=== PATIENT | female | born 1970 | race Caucasian/White ===

== ENCOUNTER 2018-01-02 12:06 | Inpatient (IN) ==
[2018-01-02] MEDS ORDERED: 0.9 % Sodium Chloride 250 ML ONE ×3 (16:08→22:54)
[2018-01-02] MEDS ORDERED: Naloxone 0.4 MG/ML INJ IVP PRN (16:09)
--- NOTE | 2018-01-02 16:52 | Internal Med History&Physical ---
Date of Encounter: 01/02/18 Time of Encounter: 16:30 Assessment and Plan (1) Anemia Current visit: Yes Status: Acute Acute severe anemia with hemoglobin of 4.4. Due to severe metromenorrhagia while on Xarelto. Will transfuse packed red blood cells. Monitor vital signs. High risk for complications. Hold anticoagulation for now. Qualifiers: Anemia type: other cause Other causes of anemia: acute posthemorrhagic Qualified Code(s): D62 - Acute posthemorrhagic anemia (2) Deep vein thrombosis (DVT) Current visit: Yes Status: Acute Patient with acute occlusive thrombus in the right popliteal, gastrocnemius and lesser saphenous veins. Was being treated with anticoagulation with Xarelto but now having severe bleeding and anemia. We will hold" for now. Consult hematology for recommendations regarding anticoagulation versus placement of IVC filter. Qualifiers: DVT location: lower extremity Affected thrombotic vein of extremity: popliteal Chronicity: acute Laterality: right Qualified Code(s): I82.431 - Acute embolism and thrombosis of right popliteal vein (3) Severe anemia Current visit: Yes Status: Acute (4) COPD (chronic obstructive pulmonary disease) Current visit: Yes Status: Chronic Not in acute exacerbation. Continue inhalers and use nebulized bronchodilators as needed Qualifiers: COPD type: chronic bronchitis Chronic bronchitis type: simple Qualified Code(s): J41.0 - Simple chronic bronchitis (5) Essential hypertension Current visit: Yes Status: Chronic Monitor blood pressure. Continue antihypertensives. (6) Diabetes mellitus Current visit: Yes Status: Chronic Blood sugars elevated in the ER at 212. Will place patient on sliding scale insulin coverage. Diabetic diet. Qualifiers: Diabetes mellitus type: type 2 Diabetes mellitus complication status: with hyperglycemia Diabetes mellitus bed bug exterminator insulin use: without bed bug exterminator use Qualified Code(s): E11.65 - Type 2 diabetes mellitus with hyperglycemia (7) Metrorrhagia Current visit: Yes Status: Acute Due to anticoagulation with Xarelto. This appears to be improving now with anticoagulation has been held. If it persists, will consult gynecology for further recommendations. (8) Morbid obesity with BMI of 70 and over, adult Current visit: Yes Status: Chronic Internal Medicine - H&P: HPI Chief complaint: Chest pain and shortness of breath and palpitations Admitted From: Emergency Dept Plans for Post Hospital Care: Home History of present illness: Ms. Mosher is a 47 year old female patient with history of morbid obesity, recently diagnosed right-sided deep vein thrombosis, diabetes mellitus type 2, hypertension presented to the ER at [facility] with complaints of chest pain, shortness of breath and palpitations. Symptoms have been going on since yesterday. She had recently been diagnosed with deep vein thrombosis in her right lower extremity and was placed on anticoagulation with Xarelto 2 weeks back. Her menstrual period Had started the next day and since then she has had persistent menstrual bleeding for the past 2 weeks. She normally has periods that last for about 3 days. She denies any hematuria, hematemesis hematochezia or hematemesis. She has never had similar symptoms in the past. She reports that she had a sprained ankle one month back and it is believed that her venous thrombosis began around that time. Past Med Surg Social Fam HX - Past Medical History Attestation: Yes The following information was validated with the patient. Source: patient Medical history: COPD, DVT, diabetes, hypertension, other (Morbid obesity) Psychiatric history: no psych history - Past Surgical History Surgical History: breast surgery, , cholecystectomy - Social History Smoking Status: Former smoker Smokeless Tobacco Status: No Alcohol use: none Drug use: none - Additional Family History Additional family history: No family history of clotting disorders Internal Medicine - H&P: Meds Cetirizine HCl [Zyrtec] 10 mg PO DAILY 11/08/17 [History] metFORMIN [Glucophage] 1,000 mg PO BID 11/08/17 [History] Rivaroxaban [Xarelto] 15 mg PO BID #42 tablet 12/16/17 [Rx] ALPRAZolam [Xanax 1 MG Tablet] 1 mg PO BID PRN 01/02/18 [History] Albuterol Sulfate [Ventolin Hfa] 2 puff IH Q4H PRN 01/02/18 [History] Amlodipine Besylate 10 mg PO DAILY 01/02/18 [History] Ammonium Lactate [Lac-Hydrin Five] 1 appl TP BID 01/02/18 [History] Cholecalciferol (D-3) [Vitamin D] 1,000 unit PO DAILY 01/02/18 [History] Diclofenac Sodium [Voltaren] 50 mg PO BID PRN 01/02/18 [History] Furosemide [Lasix] 40 mg PO BID 01/02/18 [History] Lisinopril/Hydrochlorothiazide [Zestoretic 20-25 mg Tablet] 1 each PO DAILY 05/14 [History] Tiotropium [Spiriva] 18 mcg IH 0700 01/02/18 [History] 3 Allergy/AdvReac Type Severity Reaction Status Date / Time ibuprofen AdvReac Gastrointestinal Verified 12/18/17 13:47 Upset tramadol AdvReac Shakiness Verified 12/18/17 13:47 All Systems PM: A 10-system review of systems was performed and is negative for pertinent findings except as documented above in the HPI. - Constitutional Constitutional: fatigue, malaise, no chills, no fever(s), no night sweats - EENT Eyes: no change in vision, no discharge, no pain, no photophobia Ears: no ear discharge, no ear pain, no tinnitus Nose, mouth and throat: no dysphagia, no nasal discharge, no neck pain, no sore throat - Cardiovascular Cardiovascular ROS IM: chest pain, dyspnea, no diaphoresis, no lightheadedness, no palpitations, no syncope - Respiratory Respiratory: no cough, no dyspnea, no wheezing, no excessive phlegm production - Gastrointestinal Gastrointestinal: no abdominal pain, no diarrhea, no hematemesis, no hematochezia, no melena, no nausea, no vomiting - Genitourinary Genitourinary: menorrhagia, no change in urinary stream, no dysuria, no flank pain, no hematuria - Musculoskeletal Musculoskeletal ROS IM: no numbness, no tingling - Integumentary Integumentary IM: no rash, no unusual bruising - Neurological Neurological ROS: no confusion, no convulsions, no focal weakness, no numbness, no tingling, no tremor(s) - Hematologic/Lymphatic Hematologic/Lymphatic: easy bleeding, no easy bruising - Constitutional Vitals: Temp Pulse Resp BP Pulse Ox 100.4 F H 100 18 115/49 94 01/02/18 15:33 01/02/18 15:33 01/02/18 15:33 01/02/18 15:33 01/02/18 15:33 General appearance: Present: cooperative, mild distress, A&O X 3, morbidly obese , answers questions appropriately - Neck Neck exam general surgery: Present: supple, trachea midline. Absent: lymphadenopathy - Respiratory Respiratory exam: Present: CTAB. Absent: accessory muscle use, rales, rhonchi, wheezes - Cardiovascular Cardiovascular exam: Present: RRR, +S1, +S2. Absent: diastolic murmur, gallop, rubs, systolic murmur - GI/Abdominal GI/Abdominal exam: Present: normal bowel sounds, soft, no peritoneal signs. Absent: distended, tenderness - Extremities Exam Extremities exam: Present: warm, radial pulses palpable and symmetrical. Absent : calf tenderness, cyanotic, pedal edema - Neurological Exam Neurological exam: Present: alert, CN II-XII intact, oriented X3, no focal deficits. Absent: facial droop, speech deficit - Skin Skin exam: Present: dry, intact Internal Med - H&P Results - Labs Labs: Hemoglobin 4.4, platelets 273, PT 13, INR 1.2, APTT 23.1
[2018-01-02] MEDS ORDERED: ALPRAZolam 1 MG TABLET PO PRN (16:54)
[2018-01-02] MEDS ORDERED: Furosemide 20 MG/2 ML VIAL IVP ONE (17:04)
[2018-01-02] MEDS ORDERED: Dextrose Gel 15 GM/37.5 ML TUBE PO PRN ×2 (17:05)
[2018-01-02] MEDS ORDERED: *HR* Dextrose 50 % in Water (Syg) 50 ML SYRINGE IVP PRN (17:05)
[2018-01-02] MEDS ORDERED: D5% in Water 1,000 ML IVC PRN (17:05)
[2018-01-02] MEDS ORDERED: Furosemide 40 MG TABLET PO SCH (17:30)
[2018-01-02] MEDS: Acetaminophen 325 MG TABLET PO PRN (18:25)
[2018-01-02] MEDS: Ammonium Lactate 30 APPL/225 GM BOTTLE TP SCH (19:56)
[2018-01-02] MEDS ORDERED: Insulin LISPRO 300 UNITS/3 ML VIAL SQ SCH (21:00)
[2018-01-03 05:44] LABS: Basophils % 0.3 %; Eosinophils # 0.1 K/mcL (0.0-0.6); Eosinophils % 1.3 %; Hematocrit 17.3 % (35.3-44.9); Immature Granulocytes % 1.9 % (0-4); Immature Platelets 3.3 % (1.1-6.1); Lymphocytes # 2.5 K/mcL (0.6-4.6); Lymphocytes % 24.9 %; Mean Corpuscular HGB Conc 31.8 g/dL (31.6-35.5); Mean Corpuscular Hemoglobin 26.6 pg (28.0-33.3); Mean Corpuscular Volume 83.6 fL (83.0-100.0); Mean Platelet Volume 9.8 fL (9.4-12.4); Monocytes # 0.5 K/mcL (0.0-1.3); Monocytes % 4.5 %; Neutrophils # 6.6 K/mcL (1.6-8.9); Nucleated Red Blood Cells 1.6 /100 WBC (0); Platelet Count 276 K/mcL (140-400); Red Blood Count 2.07 M/mcL (3.82-4.97); Red Cell Distribution Width 15.7 % (11.5-14.5); Segmented Neutrophils % 67.1 %
[2018-01-03 05:48] LABS: Hemoglobin 5.5 g/dL (11.5-15.4)
[2018-01-03 06:01] LABS: INR 1.1; Prothrombin Time 11.8 Seconds (9.4-12.1)
[2018-01-03 06:02] LABS: BUN/Creatinine Ratio 22 (6-26); Blood Urea Nitrogen 13 mg/dL (6-20); Calcium 8.5 mg/dL (8.6-10.3); Carbon Dioxide 27 mEq/L (23-29); Chloride 104 mEq/L (98-107); Glucose 121 mg/dL (70-105); Osmolality,Calculated 283 (280-300); Potassium 3.3 mEq/L (3.5-5.1); Sodium 136 mEq/L (136-145); eGFR For African Americans > 60 (> 60); eGFR For Non-African Americans > 60 (> 60)
[2018-01-03 06:04] LABS: Activated Partial Thrombo Time 21.3 Seconds (26.0-36.0)
[2018-01-03 06:08] LABS: Anisocytosis 1+ (Not Present); Hypochromasia Present (Not Present); Microcytosis Present (Not Present); Platelet Estimate Normal (Normal)
[2018-01-03] MEDS ORDERED: Tiotropium 18 MCG inhalation IH SCH (07:00)
[2018-01-03] MEDS: Insulin LISPRO 300 UNITS/3 ML VIAL SQ SCH ×3 (08:01→16:45)
[2018-01-03] MEDS: Furosemide 40 MG TABLET PO SCH ×2 (08:02→17:06)
[2018-01-03] MEDS: Ammonium Lactate 30 APPL/225 GM BOTTLE TP SCH (08:03)
[2018-01-03] MEDS ORDERED: amLODIPine 5 MG TABLET PO SCH (09:00)
[2018-01-03] MEDS ORDERED: Cholecalciferol (D-3) 1,000 UNIT TABLET PO SCH (09:00)
[2018-01-03] MEDS ORDERED: Loratadine 10 MG TABLET PO SCH (09:00)
[2018-01-03] MEDS ORDERED: 0.9 % Sodium Chloride 250 ML ONE ×2 (09:26→12:40)
[2018-01-03 16:00] VITALS: BP 118/67
--- NOTE | 2018-01-03 16:51 | Discharge Summary ---
Date of Encounter: 01/03/18 Time of Encounter: 16:47 - Discharge Diagnosis (1) Anemia Priority: Primary Status: Acute Qualifiers: Anemia type: other cause Other causes of anemia: acute posthemorrhagic Qualified Code(s): D62 - Acute posthemorrhagic anemia (2) Deep vein thrombosis (DVT) Priority: Secondary Status: Acute Qualifiers: DVT location: lower extremity Affected thrombotic vein of extremity: popliteal Chronicity: acute Laterality: right Qualified Code(s): I82.431 - Acute embolism and thrombosis of right popliteal vein (3) Severe anemia Priority: Secondary Status: Inactive (4) COPD (chronic obstructive pulmonary disease) Priority: Secondary Status: Chronic Qualifiers: COPD type: chronic bronchitis Chronic bronchitis type: simple Qualified Code(s): J41.0 - Simple chronic bronchitis (5) Essential hypertension Priority: Secondary Status: Chronic (6) Diabetes mellitus Priority: Secondary Status: Chronic Qualifiers: Diabetes mellitus type: type 2 Diabetes mellitus complication status: with hyperglycemia Diabetes mellitus manager intermediate insulin use: without manager intermediate use Qualified Code(s): E11.65 - Type 2 diabetes mellitus with hyperglycemia (7) Metrorrhagia Priority: Secondary Status: Inactive (8) Morbid obesity with BMI of 70 and over, adult Priority: Secondary Status: Chronic - Discharge Medications Home Medications: Cetirizine HCl [Zyrtec] 10 mg PO DAILY 11/08/17 [History] metFORMIN [Glucophage] 1,000 mg PO BID 11/08/17 [History] Rivaroxaban [Xarelto] 15 mg PO BID #42 tablet 12/16/17 [Rx] ALPRAZolam [Xanax 1 MG Tablet] 1 mg PO BID PRN 01/02/18 [History] Albuterol Sulfate [Ventolin Hfa] 2 puff IH Q4H PRN 01/02/18 [History] Amlodipine Besylate 10 mg PO DAILY 01/02/18 [History] Ammonium Lactate [Lac-Hydrin Five] 1 appl TP BID 01/02/18 [History] Cholecalciferol (D-3) [Vitamin D] 1,000 unit PO DAILY 01/02/18 [History] Diclofenac Sodium [Voltaren] 50 mg PO BID PRN 01/02/18 [History] Furosemide [Lasix] 40 mg PO BID 01/02/18 [History] Lisinopril/Hydrochlorothiazide [Zestoretic 20-25 mg Tablet] 1 each PO DAILY 05/14 [History] Tiotropium [Spiriva] 18 mcg IH 0700 01/02/18 [History] Allergies/Adverse Reactions: 3 Allergy/AdvReac Type Severity Reaction Status Date / Time ibuprofen AdvReac Gastrointestinal Verified 12/18/17 13:47 Upset tramadol AdvReac Shakiness Verified 12/18/17 13:47 Date of admission: 01/02/18 15:12 Primary care physician: Jignesh Rojas MD Consults: 01/02/18 15:29 Consult to Invasive Line Access Team [CONS] Routine Reason for Consult: LIMITED ACCESS Line Type: EPIV 01/02/18 16:56 Consult to Oncology Hematology [CONS] Routine Consulting Provider: Curtis Larkin Reason for Consult: DVT/ with severe metromenorrhagia on xarelto Call Completed: Yes 01/03/18 09:11 Consult to SIZE PAINTER [CONS] Routine Consulting Provider: GLOST TILE SORTER Maia Reason for Consult: Vaginal bleeding Call Completed: Yes Discharging clinician: Adele Frank Anticipated date of discharge: 01/03/18 - Patient Status Disposition: Transfer Other Condition: Fair Functional capacity at discharge: independent ambulation Overall status at discharge: patient is not back to baseline - Discharge Instructions Follow Up With: Jignesh Rojas MD [Primary Care Provider] - - Diet and Activity Diet: diabetic diet Hospital course: Ms. Mosher is a 47 year old female patient with morbid obesity, diabetes, hypertension, COPD presented to the ER with complaints of persistent vaginal bleeding for the past 2 weeks. She had been diagnosed with DVT 2 weeks back and was started on anticoagulation with Xarelto. On arrival to the ER, her hemoglobin was 4.4. This was held and patient was given 3 units of packed red blood cell transfusion. Despite this, her hemoglobin levels have remained low at 5.5. She has been ordered 2 more units of packed red blood cells. Gynecology was consulted and they recommended transferring the patient to a tertiary care center in case she needs gynecologic intervention due to her comorbidities and weight. Hematology was also consulted in regards to patient' s care. At this time they recommend holding anticoagulation until her acute bleeding resolves. I have discussed her case with [facility] finance executive who has kindly accepted patient's transfer. We will transfer her there once a bed is available for her. - Time Spent with Patient Total time spent providing and/or coordinating discharge services: Greater than 30 minutes (40 min) - Constitutional Vitals: Temp Pulse Resp BP Pulse Ox 98.7 F 80 17 118/67 98 01/03/18 15:59 01/03/18 16:01 01/03/18 15:59 01/03/18 15:59 01/03/18 15:59 General appearance: Present: cooperative, mild distress, A&O X 3, morbidly obese , answers questions appropriately - Neck Neck exam general surgery: Present: supple, trachea midline. Absent: lymphadenopathy - Respiratory Respiratory exam: Present: CTAB. Absent: accessory muscle use, rales, rhonchi, wheezes - Cardiovascular Cardiovascular exam: Present: RRR, +S1, +S2. Absent: diastolic murmur, gallop, rubs, systolic murmur - GI/Abdominal GI/Abdominal exam: Present: normal bowel sounds, soft, no peritoneal signs. Absent: distended, tenderness - Extremities Exam Extremities exam: Present: warm, radial pulses palpable and symmetrical. Absent : calf tenderness, cyanotic, pedal edema
[2018-01-03] MEDS: Acetaminophen 325 MG TABLET PO PRN (17:06)
[2018-01-03 17:13] LABS: Hematocrit 23.9 % (35.3-44.9)
[2018-01-03 17:14] LABS: Hemoglobin 7.5 g/dL (11.5-15.4)
== END 2018-01-03 19:40 | disposition short-term general hospital (02) | DRG 532 ==
LOC: 2NNU 15:12
PROVIDERS: ADMIT Internal Medicine; ATTEND Internal Medicine